=== PATIENT | male | born 1990 | race Caucasian/White ===

== ENCOUNTER 2018-06-02 15:22 | Inpatient (IN) | payer BC, MEDICAID ==
--- NOTE | 2018-06-02 15:37 | EDPHY ---
H & P Time Seen by Provider: 06/02/18 15:29 HPI/ROS: CHIEF COMPLAINT: Seizure HISTORY OF PRESENT ILLNESS: Patient is a 27-year-old male with a history of epilepsy. His last seizure was 4 years ago. Patient take Xanax regularly. He ran out of his prescription 4 days ago. He states his refill is in the mail. Patient was with friend in the backseat of the car. He was noted to have a flexion of his arms and a "focal" type seizure. Patient was initially confused but he is now improved. Patient denies headache or neck pain. Patient had a recent chest cold and it is improving. He has history of asthma and uses an inhaler. He denies shortness of breath at this time. He has had no leg pain or swelling REVIEW OF SYSTEMS: 10 systems were reveiwed and are negative with the exception of the elements mentioned in the history of present illness. Past Medical/Surgical History: Includes epilepsy, asthma Social history: The patient smokes THC intermittently. He denies any alcohol use. Smoking Status: Never smoked Physical Exam: Vitals noted GENERAL: Well-appearing, in no acute distress, alert. HEENT: Eyes normal to inspection, normal pharynx, no signs of dehydration. Patient has an abrasion on his nose. He states he had a"breathe right"strip that was pulled off during seizure. He thinks that caused him to have the abrasion. He also has an abrasion on his forehead which he states was from the car seat. NECK: Normal, supple. RESPIRATORY: Clear to auscultation bilaterally, no rales, rhonchi or wheezing. CVS: Regular rate and rhythm, no rubs, murmurs, or gallops. ABDOMEN: Soft, nontender, nondistended, no organomegaly. BACK: Normal to inspection, no CVA tenderness. SKIN: Normal color, no rash, warm, dry. No pallor. EXTREMITIES: No pedal edema, no calf tenderness, no Homans sign or cords, no joint swelling. NEURO/PSYCH: Higher functions: Alert and Oriented x3. Normal speech and cognition. Normal mood and affect. Cranial nerves: Normal as tested. Cerebellar: Normal as tested. Good finger to nose, good [id number], normal gait. Peripheral exam: Normal motor exam. Normal sensation. Normal reflexes. Constitutional: Initial Vital Signs Temperature (C) 36.7 C 06/02/18 15:30 Heart Rate 120 H 06/02/18 15:30 Respiratory Rate 16 06/02/18 15:30 Blood Pressure 122/84 H 06/02/18 15:30 O2 Sat (%) 98 06/02/18 15:30 O2 Delivery Mode Room Air Allergies/Adverse Reactions: lactose Adverse Reaction (Mild, Unverified 06/02/18 15:34) Home Medications: Medication Instructions Recorded levETIRAcetam [Keppra 500 mg (RX)] 500 mg PO BID #60 tab 07/23/14 ALPRAZolam [Xanax 0.5 MG (*)] 06/02/18 Albuterol [Proventil Inhaler HFA 06/02/18 (*)] Medical Decision Making - Diagnostics Imaging Results: Imaging Impressions Head CT 06/02/18 15:39 Impression: Normal brain. No intracranial hemorrhage, mass, or swelling. Findings discussed with Emergency Department physician, Vale Franco M.D. , on June 02, 2018 at 1602. ED Course/Re-evaluation: In the emergency department I met EMS on arrival. I took report from the senior it assistant. Glucose 134. General Hardware Salesperson states the patient was mildly confused initially but has improved. I discussed diagnostic options with the patient. He consented to laboratory studies and head CT. Reviewed the patient's laboratory studies. He was noted to have a high hematocrit of 57. His calcium was elevated at 11. Patient also was noted to have a low CO2. Patient was given 1 L of normal saline Head CT: No acute disease noted. Please refer the dictated report Repeat laboratory studies improved. Patient's CO2 improved 19. Patient's hematocrit normalized. I discussed the results with the patient. I answered all his questions. He is given warnings prior to leaving. He will return with worsening symptoms. He will follow up with Neurology. He is given contact information. While the patient was being prepped for discharge, his IV was removed. He subsequently had another seizure. I came into the room and witnessed a seizure. He had a tonic-clonic seizure with pokes ictal state. His seizure movement ceased. However his postictal state he became confused and slightly combative. He was given Versed 2 mg IV. I discussed the plan with the patient and his family. He will be admitted for further observation. I discussed case with Dr. Benitez who will admit the patient. Differential Diagnosis: My differential includes but is not limited to seizure, epilepsy, subarachnoid hemorrhage, subdural hematoma, epidural hematoma, mass, malignancy, electrolyte abnormality, sugar abnormality - Data Points Laboratory Results: Laboratory Results 06/02/18 17:10 06/02/18 17:10 06/02/18 06/02/18 06/02/18 17:10 17:10 15:22 WBC 14.68 10^3/uL H 10^3/uL (3.80-9.50) RBC 5.78 10^6/uL 10^6/uL (4.40-6.38) Hgb 16.8 g/dL g/dL (13.7-17.5) Hct 45.5 % % (40.0-51.0) MCV 78.7 fL L fL (81.5-99.8) MCH 29.1 pg pg (27.9-34.1) MCHC 36.9 g/dL H g/dL (32.4-36.7) RDW 12.1 % % (11.5-15.2) Plt Count 287 10^3/uL 10^3/uL (150-400) MPV 9.1 fL fL (8.7-11.7) Neut % (Auto) Not Reported Lymph % (Auto) Not Reported Barrow % (Auto) Not Reported Eos % (Auto) Not Reported Baso % (Auto) Not Reported Nucleat RBC Rel Count Not Reported Absolute Neuts (auto) Not Reported Absolute Lymphs (auto) Not Reported Absolute Monos (auto) Not Reported Absolute Eos (auto) Not Reported Absolute Basos (auto) Not Reported Absolute Nucleated RBC Not Reported Immature Gran % Not Reported Seg Neutrophils % 91.0 % % Lymphocytes % 6.0 % % Monocytes % 3.0 % % Immature Gran # Not Reported Absolute Seg Neuts 13.36 10^3/uL H 10^3/uL (1.70-6.50) Absolute Lymphocytes 0.88 10^3/uL L 10^3/uL (1.00-3.00) Absolute Monocytes 0.44 10^3/uL 10^3/uL (0.30-0.80) RBC/WBC/PLT Morphology NORMAL (NORMAL) Platelet Estimate ADEQUATE (ADEQ) Sodium 138 mEq/L mEq/L 142 mEq/L mEq/L (135-145) (135-145) Potassium 3.8 mEq/L mEq/L 4.0 mEq/L mEq/L (3.3-5.0) (3.3-5.0) Chloride 108 mEq/L mEq/L 100 mEq/L mEq/L (97-110) (97-110) Carbon Dioxide 19 mEq/l L mEq/l 10 mEq/l L mEq/l (22-31) (22-31) Anion Gap 11 mEq/L mEq/L 32 mEq/L H mEq/L (6-14) (6-14) BUN 9 mg/dL mg/dL 8 mg/dL mg/dL (7-23) (7-23) Creatinine 0.9 mg/dL mg/dL 1.3 mg/dL mg/dL (0.7-1.3) (0.7-1.3) Estimated GFR > 60 > 60 Glucose 99 mg/dL mg/dL 154 mg/dL H mg/dL (70-100) (70-100) Calcium 9.3 mg/dL mg/dL 11.1 mg/dL H mg/dL (8.5-10.4) (8.5-10.4) Phosphorus 5.6 mg/dL H mg/dL (2.5-4.5) 06/02/18 15:22 WBC 10.36 10^3/uL H 10^3/uL (3.80-9.50) RBC 6.95 10^6/uL H 10^6/uL (4.40-6.38) Hgb 19.9 g/dL H g/dL (13.7-17.5) Hct 57.4 % H % (40.0-51.0) MCV 82.6 fL fL (81.5-99.8) MCH 28.6 pg pg (27.9-34.1) MCHC 34.7 g/dL g/dL (32.4-36.7) RDW 12.8 % % (11.5-15.2) Plt Count 464 10^3/uL H 10^3/uL (150-400) MPV 9.8 fL fL (8.7-11.7) Neut % (Auto) 68.2 % % (39.3-74.2) Lymph % (Auto) 24.2 % % (15.0-45.0) Barrow % (Auto) 5.4 % % (4.5-13.0) Eos % (Auto) 0.1 % L % (0.6-7.6) Baso % (Auto) 0.8 % % (0.3-1.7) Nucleat RBC Rel Count 0.0 % % (0.0-0.2) Absolute Neuts (auto) 7.07 10^3/uL H 10^3/uL (1.70-6.50) Absolute Lymphs (auto) 2.51 10^3/uL 10^3/uL (1.00-3.00) Absolute Monos (auto) 0.56 10^3/uL 10^3/uL (0.30-0.80) Absolute Eos (auto) 0.01 10^3/uL L 10^3/uL (0.03-0.40) Absolute Basos (auto) 0.08 10^3/uL 10^3/uL (0.02-0.10) Absolute Nucleated RBC 0.00 10^3/uL 10^3/uL (0-0.01) Immature Gran % 1.3 % H % (0.0-1.1) Seg Neutrophils % Lymphocytes % Monocytes % Immature Gran # 0.13 10^3/uL H 10^3/uL (0.00-0.10) Absolute Seg Neuts Absolute Lymphocytes Absolute Monocytes RBC/WBC/PLT Morphology Platelet Estimate Sodium Potassium Chloride Carbon Dioxide Anion Gap BUN Creatinine Estimated GFR Glucose Calcium Phosphorus Medications Given: Discontinued Medications Sodium Chloride (Ns) 1,000 mls @ 0 mls/hr IV ONCE ONE; Wide Open PRN Reason: Protocol Stop: 06/02/18 15:40 Last Admin: 06/02/18 16:03 Dose: 1,000 mls Departure - Departure Disposition: [facility] Acute Clinical Impression: Seizure Benzodiazepine withdrawal Qualifiers: Complication of substance-induced condition: uncomplicated Qualified Code(s): F13.230 - Sedative, hypnotic or anxiolytic dependence with withdrawal, uncomplicated Condition: Good Instructions: Epilepsy (ED) Additional Instructions: Return with increasing headache, neck pain, focal deficits (weakness or numbness ). You been given follow-up information for a neurologist. Please call to make an appointment. Referrals: Dwayne Chavez MD [Medical Doctor] - 5-7 days, call for appt.
[2018-06-02] MEDS ORDERED: NS 1,000 ML IV ONE (15:39)
[2018-06-02 15:54] LABS: PLATELET COUNT 464 10^3/uL (150-400)
[2018-06-02 18:00] LABS: PLATELET COUNT 287 10^3/uL (150-400)
[2018-06-02] MEDS ORDERED: MIDAZOLAM 10 MG/2 ML VIAL IM ONE (18:15)
[2018-06-02] MEDS ORDERED: MIDAZOLAM 10 MG/2 ML VIAL ONE (18:18)
[2018-06-02] MEDS ORDERED: ONDANSETRON DISINTEGRATING 4 MG TAB PO PRN (18:34)
[2018-06-02] MEDS ORDERED: LORazepam 2 MG/ML INJ IVP PRN (18:34)
[2018-06-02] MEDS ORDERED: ONDANSETRON 4 MG/2 ML VIAL IVP PRN (18:34)
[2018-06-02] MEDS ORDERED: ALBUTEROL 60 PUFFS/8 GM MDI IH PRN (19:28)
--- NOTE | 2018-06-02 19:28 | PDGENHP ---
History and Physical - Chief Complaint Seizure - History of Present Illness Juwan Woodward is a 27 yo M with a PMHx of epilepsy, asthma who presents to [facility] for seizure. He was riding in a car earlier today when he was noted to have flexion of his arms. He was initially confused then improved back to baseline. He then had another seizure while in the [facility] ED. He was given 5 mg IM Versed with cessation of seizure activity. At time of examination, patient is AAOx3. He notes that he has had very little sleep recently due to his being . He also notes that he usually takes 0.5 mg Ativan BID, but has been out of this medication for 4 days. History Information - Allergies/Home Medication List Allergies/Adverse Reactions: lactose Allergy (Mild, Verified 06/02/18 19:22) Home Medications: ALPRAZolam [Xanax 0.5 MG (*)] 06/02/18 [Last Taken Unknown] Albuterol [Proventil Inhaler HFA (*)] 06/02/18 [Last Taken Unknown] I have personally reviewed and updated: family history, medical history, social history, surgical history - Past Medical History asthma, seizures - Surgical History Reports: no pertinent surgical hx - Family History Positive for: non-pertinent - Social History Smoking Status: Never smoked Review of Systems Review of Systems: ROS: 10pt was reviewed & negative except for what was stated in HPI & below Physical Exam Physical Exam: Temp Pulse Resp BP Pulse Ox 36.6 C 119 H 18 103/71 96 06/02/18 18:33 06/02/18 19:05 06/02/18 19:05 06/02/18 19:05 06/02/18 19:05 Constitutional: uncomfortable Eyes: PERRL Ears, Nose, Mouth, Throat: dry mucous membranes Cardiovascular: tachycardia Respiratory: no respiratory distress Gastrointestinal: soft, non-tender abdomen Genitourinary: No caldwell in urethra Skin: warm, abrasion Musculoskeletal: full muscle strength Neurologic: AAOx3 Psychiatric: interacting appropriately Lymph, Heme, Immunologic: ecchymoses Lab Data & Imaging Review 06/02/18 17:10 06/02/18 17:10 WBC 14.68 10^3/uL (3.80-9.50) H 06/02/18 17:10 RBC 5.78 10^6/uL (4.40-6.38) 06/02/18 17:10 Hgb 16.8 g/dL (13.7-17.5) 06/02/18 17:10 Hct 45.5 % (40.0-51.0) 06/02/18 17:10 MCV 78.7 fL (81.5-99.8) L 06/02/18 17:10 MCH 29.1 pg (27.9-34.1) 06/02/18 17:10 MCHC 36.9 g/dL (32.4-36.7) H 06/02/18 17:10 RDW 12.1 % (11.5-15.2) 06/02/18 17:10 Plt Count 287 10^3/uL (150-400) 06/02/18 17:10 MPV 9.1 fL (8.7-11.7) 06/02/18 17:10 Neut % (Auto) Not Reported 06/02/18 17:10 Lymph % (Auto) Not Reported 06/02/18 17:10 Door % (Auto) Not Reported 06/02/18 17:10 Eos % (Auto) Not Reported 06/02/18 17:10 Baso % (Auto) Not Reported 06/02/18 17:10 Nucleat RBC Rel Count Not Reported 06/02/18 17:10 Absolute Neuts (auto) Not Reported 06/02/18 17:10 Absolute Lymphs (auto) Not Reported 06/02/18 17:10 Absolute Monos (auto) Not Reported 06/02/18 17:10 Absolute Eos (auto) Not Reported 06/02/18 17:10 Absolute Basos (auto) Not Reported 06/02/18 17:10 Absolute Nucleated RBC Not Reported 06/02/18 17:10 Immature Gran % Not Reported 06/02/18 17:10 Seg Neutrophils % 91.0 % 06/02/18 17:10 Band Neutrophils % 0.0 % 06/02/18 17:10 Lymphocytes % 6.0 % 06/02/18 17:10 Monocytes % 3.0 % 06/02/18 17:10 Eosinophils % 0.0 % 06/02/18 17:10 Basophils % 0.0 % 06/02/18 17:10 Metamyelocytes % 0.0 % 06/02/18 17:10 Myelocytes % 0.0 % 06/02/18 17:10 Promyelocytes % 0.0 % 06/02/18 17:10 Blast Cells % 0.0 % 06/02/18 17:10 Immature Gran # Not Reported 06/02/18 17:10 Absolute Seg Neuts 13.36 10^3/uL (1.70-6.50) H 06/02/18 17:10 Absolute Band Neuts 0.00 10^3/uL (0.00-0.70) 06/02/18 17:10 Absolute Lymphocytes 0.88 10^3/uL (1.00-3.00) L 06/02/18 17:10 Absolute Monocytes 0.44 10^3/uL (0.30-0.80) 06/02/18 17:10 Absolute Eosinophils 0.00 10^3/uL (0.03-0.40) L 06/02/18 17:10 Absolute Basophils 0.00 10^3/uL (0.02-0.10) L 06/02/18 17:10 Absolute Metamyelocyte 0.00 10^3/mL (0.00-0.00) 06/02/18 17:10 Absolute Myelocytes 0.00 10^3/mL (0.00-0.00) 06/02/18 17:10 Absolute Promyelocytes 0.00 10^3/uL (0.00-0.00) 06/02/18 17:10 Absolute Plasma Cells 0.00 10^3/uL (0.00-0.00) 06/02/18 17:10 Nucleated RBCs 0 /100 WBC (0-0) 06/02/18 17:10 RBC/WBC/PLT Morphology NORMAL (NORMAL) 06/02/18 17:10 Absolute Blast Cells 0.00 10^3/uL (0.00-0.00) 06/02/18 17:10 Plasma Cells % 0.0 % 06/02/18 17:10 Platelet Estimate ADEQUATE (ADEQ) 06/02/18 17:10 Sodium 138 mEq/L (135-145) 06/02/18 17:10 Potassium 3.8 mEq/L (3.3-5.0) 06/02/18 17:10 Chloride 108 mEq/L (97-110) 06/02/18 17:10 Carbon Dioxide 19 mEq/l (22-31) L 06/02/18 17:10 Anion Gap 11 mEq/L (6-14) 06/02/18 17:10 BUN 9 mg/dL (7-23) 06/02/18 17:10 Creatinine 0.9 mg/dL (0.7-1.3) 06/02/18 17:10 Estimated GFR > 60 06/02/18 17:10 Glucose 99 mg/dL (70-100) 06/02/18 17:10 Calcium 9.3 mg/dL (8.5-10.4) 06/02/18 17:10 Phosphorus 5.6 mg/dL (2.5-4.5) H 06/02/18 15:22 Assessment & Plan Assessment: Epilepsy - Had 2 seizures today, in setting of Benzodiazepine withdrawal and limited sleep - S/p 5 mg IM Versed in ED with resolution of seizure activity - Was taking 0.5 mg Ativan BID, has been out for 4 days - Will continue Diazepam 5 mg q6 hours to prevent withdrawal, transition back to home Xanax tomorrow - He was previously on Keppra 500 mg BID, will restart - Seizure precautions ordered - CT Head without acute abnormality on admission - Consult Neurology in the AM for further evaluation and management Benzodiazepine Withdrawal - Management as above Asthma - No sign of active exacerbation -Continue home Albuterol prn Metabolic Acidosis - Bicarb 19 on admission - Likely decreased in setting of seizure activity - Continue to monitor BMP FEN: PRN, NPO for now given recent seizure, s/p IVF in ED Ppx: SCDs Code: FULL Dispo: Admit to Medicine
[2018-06-02] MEDS: DIAZEPAM 5 MG/ML 1 ML SYR IVP SCH (19:35)
[2018-06-02] MEDS: levETIRAcetam 500 MG TAB PO SCH (21:50)
[2018-06-02] MEDS: ACETAMINOPHEN 325 MG TAB PO PRN (21:51)
[2018-06-03] MEDS: DIAZEPAM 5 MG/ML 1 ML SYR IVP SCH ×2 (01:09→08:04)
[2018-06-03] MEDS: ACETAMINOPHEN 325 MG TAB PO PRN ×3 (04:16→13:30)
[2018-06-03 04:36] LABS: PLATELET COUNT 272 10^3/uL (150-400)
[2018-06-03] MEDS ORDERED: ALPRAZolam 0.5 MG TAB PO SCH (09:00)
[2018-06-03] MEDS: oxyCODONE IR 5 MG TAB PO PRN ×2 (09:08→13:31)
[2018-06-03] MEDS: levETIRAcetam 500 MG TAB PO SCH (09:09)
[2018-06-03] MEDS ORDERED: ALPRAZolam 0.25 MG TAB PO SCH (09:45)
--- NOTE | 2018-06-03 11:14 | PDMN ---
Medical Necessity Medical necessity: Pt meets inpt criteria per MD and [place] [id number]; est los >2 mn for eval tx of recurrent seizures r/t benzo withdrawal with tachycardia, metabolic acidosis, and inability to establish OP antiseizure regimen; requiring further monitoring, neurology consult, IV valium/med management per H& P and order 06/02/2018
[2018-06-03 11:46] VITALS: BP 113/73
--- NOTE | 2018-06-03 13:09 | PDDCSUM ---
Discharge Summary Discharge Summary: Date of Admission: 06/02/2018 Date of Discharge: 06/03/2018 Procedures/Studies: non-con CT head - normal Discharge Diagnoses: 1. Seizure 2. Possible benzodiazepine withdrawal 3. Metabolic acidosis 4. Asthma Brief Hospital Course: 27yo M with history of seizures (none in 3-4 years) who presented after having generalized tonic-clonic seizure while his was driving. He reports significant sleep deficit and stress recently as is about to give to second child. Additionally, he ran out of his alprazolam, which he has been taking chronically for 3 years albeit at a very small dose, about 4 days ago. He then had another seizure in the ED that spontaneously aborted. CT head and lab work up was normal. Neurology was consulted but unable to see him as patient was very eager to leave. I discussed with neurology who recommended close follow up and the patient was given their number. He was given a script for alprazolam. 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 Of note, the patient was seen in the [facility] ED 07/2014 for a seizure and neurology had recommended keppra at that time. He has not taken this medication since early 2014 as it makes him tired. I again discussed that keppra would be a much more suitable long-term medication than benzodiazepines but patient declined to get a prescription for this. He has not been following with a neurologist. He has been getting his benzos online. Medications: Please refer to EMR for complete list. He was given a prescription for alprazolam 0.5mg #8 with 0 refills. Follow Up Plan: 1. He was given the # to set up an appointment with our neurologists 2. No driving Physical Exam: Vitals reviewed and normal. He was alert and oriented with no focal neurologic deficits. RRR without m/r/g, lungs clear, abdomen soft. Small abrasion on bridge of nose and on forehead.
== END 2018-06-03 13:35 | disposition home or self-care (01) | DRG 53 ==
LOC: EDUNIT# → OBSVTOIN 18:35 → F2W 21:04
PROVIDERS: ADMIT Internal Medicine; ATTEND Internal Medicine
DX: G40.909 Epilepsy, unspecified, not intractable, without status epilepticus (principal); F13.239 Sedative, hypnotic or anxiolytic dependence with withdrawal, unspecified; E87.2 Acidosis; J45.909 Unspecified asthma, uncomplicated
CPT/HCPCS: J2250; J3360

== ENCOUNTER 2018-08-09 16:33 | Emergency (ER) | payer MEDICAID, OTHER ==
--- NOTE | 2018-08-09 17:14 | EDPHY ---
H & P Stated Complaint: Bilat Hand Blisters - Cold Weather Injury - Personal History Current Tetanus Diphtheria and Acellular Pertussis (TDAP): Yes - Medical/Surgical History Hx Asthma: Yes Hx Chronic Respiratory Disease: No Hx Diabetes: No Hx Cardiac Disease: No Hx Renal Disease: No Hx Cirrhosis: No Hx Alcoholism: No Hx HIV/AIDS: No Hx Splenectomy or Spleen Trauma: No Other PMH: seizures; asthma - Social History Smoking Status: Never smoked Time Seen by Provider: 08/09/18 17:14 Constitutional: Initial Vital Signs Temperature (C) 36.9 C 08/09/18 16:36 Heart Rate 85 08/09/18 16:36 Respiratory Rate 18 08/09/18 16:36 Blood Pressure 107/75 08/09/18 16:36 O2 Sat (%) 98 08/09/18 16:36 O2 Delivery Mode Room Air Allergies/Adverse Reactions: No Known Allergies Allergy (Unverified 08/09/18 16:35) Home Medications: Medication Instructions Recorded Albuterol [Proventil Inhaler HFA 2 puffs IN Q4 PRN 06/02/18 (*)] Fluticasone Propionate [Flovent 1 puffs IN BID 06/02/18 Hfa] ALPRAZolam [Xanax 0.5 MG (*)] 0.25 mg PO BID #8 tab 06/03/18 Medical Decision Making Procedures: Procedure: Blister removal from left 2nd finger. Anesthesia: None required After verbal consent was obtained, the blister was removed from volar aspect of the left index finger. The foreign body was removed manually with forceps under direct visualization. There were no complications. Irrigated copiously bacitracin nonocclusive dressing applied. The procedure was performed by myself. (Gisselle Magallon) ED Course/Re-evaluation: CHIEF COMPLAINT: Blisters to both palms HISTORY OF PRESENT ILLNESS: This patient is a pleasant 28 year old male who presents with severe blisters to both palms. 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 He developed large blisters over both palms and fingers. He is concerned for possible infection or cold injury or other complications from the blisters. He is able to move his hands and fingers. He denies any other recent trauma or illness and has no further complaints. REVIEW OF SYSTEMS: A comprehensive 10 system review of systems is otherwise negative aside from elements mentioned in the history of present illness and medical decision making. PHYSICAL EXAM: HR, BP, O2 Sat, RR. Temp noted General Appearance: Alert, well hydrated, appropriate, and non-toxic appearing. Head: Atraumatic without scalp tenderness or obvious injury Respiratory: No retractions, no distress, no wheezes, and no accessory muscle use. Lungs are clear to auscultation bilaterally. Cardiovascular: Regular rate and rhythm. Good capillary refill all extremities. Musculoskeletal: Normal active ROM of all extremities, atraumatic. Neurological: Alert, appropriate, and interactive. Nonfocal exam. Skin: Multiple large blisters over both palms including the fingers. No significant erythema. No warmth or discharge. Good turgor, no nodules on palpation. Past medical history: Asthma, seizures. Past surgical history: Noncontributory Family history: Noncontributory Social history: Employed. Friend at bedside. Does not abuse tobacco, drugs, or alcohol. DIFFERENTIAL DIAGNOSIS: Includes but not limited to friction blisters, acute palmoplantar eczema, bullous tinea pedis, and allergic contact dermatitis. MEDICAL DECISION [id number] y/o male presents with large blisters over the palmar aspects of both hands including the fingers after prolonged heavy manual labor yesterday. Exam consistent with friction blisters. No evidence of infection at this time. Open blister over left index finger - plan to clean and debride this under standard ED protocol. MARCIE Redman, will perform this procedure. See note above for details. Patient tolerated the procedure well. Plan to dress his hands under standard ED protocol and discharge home in good condition. Follow up and return precautions discussed. He will apply bacitracin and keep his hands clean and dry. Work note provided so the patient can avoid manual labor until his hands heal. The patient understands and is comfortable with this plan. (Naeem Smith) Departure - Departure Disposition: Home, Routine, Self-Care Clinical Impression: Blisters of multiple sites Condition: Good Instructions: Blister (ED) Additional Instructions: Do not remove dressings for 48 hr. After 48 hr you can remove her dresser in and then wash with soap and water and pat dry daily. Keep your blisters clean and dry. Apply bacitracin and clean dressings as directed. Please avoid heavy work with your hands until they are healing sufficiently. Return to the Emergency Department for fever, redness, discharge from wound, increasing pain or other worsening of condition. Adult Pain & Fever Control: We recommend Acetaminophen (Tylenol) and Ibuprofen (Motrin,Advil) for pain and fever control. When fever is high or pain severe, both drugs can be used at the same time, but at different intervals. Please note the time differences. Your dose is: Acetaminophen 650mg every 4 to 6 hours Ibuprofen 600mg every 6-8 hours with food Note: do not take Acetaminophen with Hydrocodone (Vicodin, Lortab) or Oxycodone (Percocet). These medications also contain Acetaminophen. No more than 3000mg of Acetaminophen should be taken in 24 hours (for an adult). Referrals: Ziggy Lowe MD [Primary Care Provider] - As per Instructions Stand Alone Forms: Work Excuse Report Scribed for: Naeem Smith Report Scribed by: Zelda Mendez Date of Report: 08/09/18 Time of Report: 17:26
[2018-08-09 17:53] VITALS: BP 105/67
== END 2018-08-09 17:52 | disposition home or self-care (01) ==
PROC: 2W28X4Z Dressing of Right Upper Extremity using Bandage (ICD-10-PCS; principal; 2018-08-09)
PROC: 2W29X4Z Dressing of Left Upper Extremity using Bandage (ICD-10-PCS; 2018-08-09)
DX: S60.522A Blister (nonthermal) of left hand, initial encounter (principal); S60.521A Blister (nonthermal) of right hand, initial encounter; S60.42 Blister (nonthermal) of fingers; X58.XXXA Exposure to other specified factors, initial encounter; Y92.9 Unspecified place or not applicable; Y93.89 Activity, other specified; Y99.0 Civilian activity done for income or pay